=== PATIENT | male | born 1980 | race Caucasian/White ===

== ENCOUNTER 2017-04-10 12:51 | Inpatient (IN) | payer OTHER ==
[~2017-04-10] VITALS: Ht 190.5 cm; Wt 124.7 kg
[~2017-04-10 12:51] MED LIST: CARdura 2MG TABLET PO; ENALAPRIL MALEAT5 MG PO; GABAPENTIN800 MG PO; HUMULIN R500 UNIT/2; LIPITOR40 MG PO; Lopid PO; ORPHENADRI30 MG/1 M1 IV; SUCRALFATE1 GM/10 ML PO
[2017-05-30] MEDS ORDERED: Intestinex CAP PO (14:18)
[2017-05-30] MEDS ORDERED: CARdura 2MG TABLET PO (14:18)
[2017-05-30] MEDS ORDERED: FOLIC ACID1 MG PO (14:18)
[2017-05-30] MEDS ORDERED: Neurin-Sl Tablet Sl SL (14:18)
[2017-05-30] MEDS ORDERED: GABAPENTIN800 MG PO (14:18)
[2017-05-30] MEDS ORDERED: Lopid PO (14:18)
== END 2017-05-30 14:43 | disposition home or self-care (01) | DRG 638 ==
LOC: ER 12:51 → SURH 15:11 → MEDI 15:11 → SEC-K 15:11 → MEDI 17:03 → SURH 04-12 19:12
PROVIDERS: Surgery
PROC: BQ3LZZZ Magnetic Resonance Imaging (MRI) of Right Foot (ICD-10-PCS; 2017-04-10)
PROC: 30233N1 Transfusion of Nonautologous Red Blood Cells into Peripheral Vein, Percutaneous Approach (ICD-10-PCS; 2017-04-11)
PROC: 8E0ZXY6 Isolation (ICD-10-PCS; 2017-04-11)
PROC: 0H9MXZX Drainage of Right Foot Skin, External Approach, Diagnostic (ICD-10-PCS; principal; 2017-04-12 14:00)
DX: E11.69 Type 2 diabetes mellitus with other specified complication (principal); M86.171 Other acute osteomyelitis, right ankle and foot; L02.611 Cutaneous abscess of right foot; L97.518 Non-pressure chronic ulcer of other part of right foot with other specified severity; B02.8 Zoster with other complications; E11.65 Type 2 diabetes mellitus with hyperglycemia; L03.031 Cellulitis of right toe; E11.22 Type 2 diabetes mellitus with diabetic chronic kidney disease; I12.9 Hypertensive chronic kidney disease with stage 1 through stage 4 chronic kidney disease, or unspecified chronic kidney disease; N18.1 Chronic kidney disease, stage 1; E87.5 Hyperkalemia; E88.81 Metabolic syndrome and other insulin resistance; B95.62 Methicillin resistant Staphylococcus aureus infection as the cause of diseases classified elsewhere; E11.21 Type 2 diabetes mellitus with diabetic nephropathy; E11.621 Type 2 diabetes mellitus with foot ulcer; E83.42 Hypomagnesemia; B96.4 Proteus (mirabilis) (morganii) as the cause of diseases classified elsewhere; D63.1 Anemia in chronic kidney disease
CPT/HCPCS: 73722

== ENCOUNTER 2025-02-19 11:46 | Outpatient (CLI) | payer OTHER ==
[~2025-02-19 11:46] MED LIST changes: +FOLIC ACID1 MG PO; +Intestinex CAP PO; +Neurin-Sl Tablet Sl SL
== END 2025-02-19 11:49 | disposition home or self-care (01) ==
LOC: SONOGRAMA 11:46
DX: N18.31 Chronic kidney disease, stage 3a (principal); N20.0 Calculus of kidney